=== PATIENT | female | born 1985 | race Caucasian/White ===

== ENCOUNTER 2017-05-20 17:37 | Emergency (ER) | payer OTHER ==
[~2017-05-20] VITALS: Ht 160 cm; Wt 59.0 kg
[2017-05-20 18:26] LABS: microscopic required? NO
[2017-05-20 18:36] LABS: urine erythrocyte NEGATIVE (NEGATIVE)
[2017-05-20 19:01] LABS: PLATELET COUNT 218 x10^3mcL (130-400)
[2017-05-20 19:02] LABS: MONOCYTE 6 % (0-7); RED CELL DISTRIBUTION WIDTH 14.9 % (11.5-14.5)
[2017-05-20 19:03] LABS: SEGMENTED NEUTROPHILS 66 % (37-75)
[2017-05-20 19:04] LABS: rbc morphology (normal/abnorm) NORMAL (NORMAL)
[2017-05-20 19:05] LABS: PATH REVIEW for HEMA NO
[2017-05-20 19:13] LABS: CHLORIDE SERUM 104 mmol/L (98-107); CREATININE SERUM 0.6 mg/dL (0.6-1.0); GFR1 > 60 mL/min; GLUCOSE SERUM 107 mg/dL (74-106); POTASSIUM SERUM 3.6 mmol/L (3.5-5.1); SODIUM SERUM 139 mmol/L (136-145)
[2017-05-20 19:17] LABS: ALBUMIN 3.8 g/dL (3.4-5.0); ALKALINE PHOSPHATASE 44 U/L (46-116); ALT/SGPT 25 U/L (14-59); AST/SGOT 21 U/L (15-37); BILIRUBIN TOTAL 0.3 mg/dL (0.20-1.00); LIPASE 240 IU/L (73-393); TOTAL PROTEIN, SERUM 7.2 g/dL (6.4-8.2)
[2017-05-20 21:55] VITALS: BP 120/77
== END 2017-05-20 21:55 | disposition home or self-care (01) ==
LOC: ED 17:37
PROVIDERS: Emergency Medicine
DX: N83.201 Unspecified ovarian cyst, right side (principal)
CPT/HCPCS: 36415; J1885; Q0162

== ENCOUNTER 2018-05-20 11:38 | Emergency (ER) | payer OTHER ==
[2018-05-20 12:09] LABS: microscopic required? NO
[2018-05-20 12:15] LABS: BASOPHIL % 0.4 % (0-2); RED CELL DISTRIBUTION WIDTH 13.4 % (11.5-14.5)
[2018-05-20 12:22] LABS: PLATELET COUNT 295 x10^3mcL (130-400)
[2018-05-20 12:29] LABS: UA SPECIFIC GRAVITY 1.015 (1.005-1.035); urine erythrocyte NEGATIVE (NEGATIVE)
[2018-05-20 12:41] LABS: CALCIUM 8.3 mg/dL (8.5-10.1); CHLORIDE SERUM 99 mmol/L (98-107); CREATININE SERUM 0.7 mg/dL (0.6-1.0); GFR1 > 60 mL/min; GLUCOSE SERUM 114 mg/dL (74-106); POTASSIUM SERUM 3.5 mmol/L (3.5-5.1); SODIUM SERUM 135 mmol/L (136-145)
[2018-05-20 12:45] LABS: ALKALINE PHOSPHATASE 40 U/L (46-116); ALT/SGPT 21 U/L (14-59); AMYLASE 37 U/L (25-115); AST/SGOT 21 U/L (15-37); BILIRUBIN TOTAL 0.7 mg/dL (0.20-1.00); CHOLESTEROL 169 mg/dL (<200); LIPASE 179 IU/L (73-393); TOTAL PROTEIN, SERUM 7.6 g/dL (6.4-8.2)
[2018-05-20 15:03] VITALS: BP 110/65
== END 2018-05-20 15:04 | disposition home or self-care (01) ==
LOC: ED 11:38
PROVIDERS: Emergency Medicine
DX: R10.11 Right upper quadrant pain (principal); F17.210 Nicotine dependence, cigarettes, uncomplicated; Z71.6 Tobacco abuse counseling
CPT/HCPCS: 36415; 99406; J1885; Q0092